=== PATIENT | female | born 1990 | race Caucasian/White ===

== ENCOUNTER 2017-01-03 23:57 | Emergency (ER) | payer OTHER ==
[~2017-01-03] VITALS: Ht 160 cm; Wt 76.1 kg
[~2017-01-03 23:57] MED LIST: IBUPROFEN800 MG PO; NOHOMEMEDS; PRENATAL TABLE1 EACH PO; TYLENOL EXTRA500 MG PO
[2017-01-04 00:23] LABS: ADD MIUA? YES; BILIRUBIN NEGATIVE; BLOOD NEGATIVE; COLOR STRAW ((YELLOW)); GLUCOSE (STRIP) NEGATIVE; KETONES NEGATIVE; LEUKOCYTES LARGE; NITRITE NEGATIVE; PROTEIN (STRIP) NEGATIVE; SPECIFIC GRAVITY 1.011 (1.000-1.030); UROBILINOGEN 0.2 MG/DL (0.2-1.0)
[2017-01-04 00:23] LABS: MCH 30.5 PG (29.0-34.0); MCHC 33.8 G/DL (30.0-36.0); MCV 90.3 FL (83-99); RBC DIS.WIDTH-SD 39.8 % (39-53); RED BLOOD COUNT 4.65 M/uL (3.80-5.20)
[2017-01-04 00:26] LABS: PLATELET COUNT 195 K/uL (156-360)
[2017-01-04 00:34] LABS: CHLORIDE 107 mEq/L (99-109); POTASSIUM 3.8 mEq/L (3.7-5.4); SODIUM 138 mEq/L (136-147)
[2017-01-04 00:35] LABS: GLUCOSE 96 mg/dL (70-99)
[2017-01-04 00:36] LABS: BACTERIA RARE /HPF; EPITHELIAL CELLS 1+ /HPF; HYALINE CASTS 0-5 /LPF; MUCUS NONE SEEN /LPF; RED BLOOD CELLS 0-5 /HPF (0-5); UCUL ADDED? NO
[2017-01-04 00:37] LABS: ANION GAP 11 MEQ/L (2-14)
[2017-01-04 00:39] LABS: GFR ESTIMATE (CALCULATED) > 59 mL/min/
[2017-01-04 00:40] LABS: UREA NITROGEN (BUN) 9 mg/dL (9-23)
[2017-01-04 00:48] LABS: QUANTITATIVE HCG < 4.0 MIU/ML
[2017-01-04] MEDS ORDERED: MOTRIN800 MG PO (01:09)
[2017-01-04 01:22] VITALS: BP 113/87
== END 2017-01-04 01:23 | disposition home or self-care (01) ==
LOC: EME 23:57 → RME 23:57
DX: R10.9 Unspecified abdominal pain (principal); R11.0 Nausea; F17.200 Nicotine dependence, unspecified, uncomplicated
CPT/HCPCS: 80048; 81003; 84702; 85027; 99281; 99284; J1885